=== PATIENT | female | born 1965 | race Caucasian/White ===

== ENCOUNTER 2017-11-16 06:35 | Emergency (ER) | payer OTHER ==
--- NOTE | 2017-11-16 07:03 | EDPHY ---
HPI/HX/ROS/PE/MDM Narrative: CHIEF COMPLAINT: Blood in stool HISTORY OF PRESENT ILLNESS: This patient is a pleasant 52 y/o female complaining of blood in her stool. 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 One 14mm and one 3mm polyp were removed during the procedure. Since that time, she has had bright red blood associated with every bowel movement. She notices blood dripping into the toilet bowl for several minutes following her bowel movements. She does not notice any bleeding at other times or presence of blood in her underclothes. She denies hematuria. The patient complains of left-sided cramping abdominal pain and some back pain. She took a laxative last night and her last oral intake was around 3pm yesterday. She spoke with Dr. Cruz's office regarding possible cauterization and staff recommended she present to the emergency department for further evaluation and consult with the on-call GI specialist. The patient notes she has been told during prior procedures that she "does not clot well". She is not anticoagulated and does not take daily aspirin. She endorses family history of Crohn's disease. No fever, chills, chest pain, shortness of breath, palpitations, vomiting, diarrhea, urinary complaints, headache, lightheadedness, dizziness. REVIEW OF SYSTEMS: Aside from elements discussed in the HPI, a comprehensive 10-point review of systems was reviewed and is negative. PAST MEDICAL HISTORY: Hypothyroidism, Raynaud's, "small esophagus" SOCIAL HISTORY: . at bedside. Lives in [place]. GI specialist: Dr. Cruz. VITAL SIGNS: Reviewed by me GENERAL: Well-developed, well-nourished, resting comfortably in no respiratory distress. HEENT: Atraumatic. Eyes: No icterus, no injection. Mouth: moist mucous membranes. No erythema or lesions. Neck: supple with no adenopathy. LUNGS: Clear to auscultation bilaterally, no wheezes, rhonchi or rales. CARDIAC: Regular rate and rhythm, mildly rapid around 90bpm. No rubs, murmurs or gallops. ABDOMEN: Voluntary guarding and tenderness in LLQ. Soft, nondistended, bowel sounds normal. BACK: No CVA tenderness. EXTREMITIES: No trauma. No edema. Range of motion is normal throughout. NEURO: Alert and oriented, grossly nonfocal. SKIN: Warm and dry, no rash. PSYCHIATRIC: Normal mentation, no agitation. Portions of this note were transcribed by a director [employer]. I personally performed a history, physical exam, medical decision making, and confirmed accuracy of information the transcribed note. ED Course: 52 y/o female presents with ten day history of bleeding associated with bowel movements following a colonoscopy and polypectomy on 11/07/17. Exam reveals tenderness and voluntary guarding to the lower left quadrant. Plan to consult with Dr. Pollack, ready mix truck driver bell person. IV established. Plan for labs including CBC, chemistries. Plan to administer 1L IV NS. Labs largely unremarkable. 08:25 Dr. Pollack at bedside. 08:45 Internal bleeding hemorrhoids noted on Dr. Pollack's exam. Plan to discharge home in good condition with prescription for Anusol HC suppositories. She will follow up newt week with Dr. Cruz, her ready mix truck driver. Follow up and return precautions discussed. She is comfortable with this plan. MDM: Differential diagnoses for the patient's symptom complex was considered including but not limited to upper GI hemorrhage, lower GI hemorrhage, bleeding hemorrhoids, anal fissures, bleeding from polyp removal site, AVM. - Data Points Laboratory Results: Laboratory Results 11/16/17 07:02 11/16/17 07:02 Medications Given: Discontinued Medications Sodium Chloride (Ns) 1,000 mls @ 0 mls/hr IV ONCE ONE; Wide Open PRN Reason: Protocol Stop: 11/16/17 07:23 Last Admin: 11/16/17 08:30 Dose: Not Given General Time Seen by Provider: 11/16/17 07:02 Initial Vital Signs: Initial Vital Signs Temperature (C) 36.8 C 11/16/17 06:45 Heart Rate 79 11/16/17 06:45 Respiratory Rate 16 11/16/17 06:45 Blood Pressure 119/82 H 11/16/17 06:45 O2 Sat (%) 97 11/16/17 06:45 O2 Delivery Mode Room Air Allergies/Adverse Reactions: No Known Allergies Allergy (Unverified 10/26/09 14:27) Home Medications: Medication Instructions Recorded Hydrocortisone Acetate [Anucort-Hc] 25 mg RC DAILY PRN #15 supp.rect 11/16/17 Levothyroxine 11/16/17 Departure - Departure Disposition: Home, Routine, Self-Care Clinical Impression: Rectal bleeding, Hemorrhoids Condition: Good Instructions: Hemorrhoids (ED), Rectal Bleeding (ED) Additional Instructions: Use Anusol HC suppositories as directed. Follow up with Dr. Cruz next week for re-evaluation. Return to the emergency department for increased or persistent bleeding, increased or changing pain, lightheadedness, fever, chest pain, shortness of breath, or other worsening of condition or further concerns. You may wish to follow up with your primary care physician for a bleeding test as we discussed. Referrals: Miguel Ángel Cruz MD [Primary Care Provider] - As per Instructions Prescriptions: Hydrocortisone Acetate [Anucort-Hc] 25 mg RC DAILY PRN #15 supp.rect PRN Reason: hemorrhoid Report Scribed for: Melissa Valentine Report Scribed by: Lisa Cast Date of Report: 11/16/17 Time of Report: 07:07
[2017-11-16] MEDS ORDERED: NS 1,000 ML IV ONE (07:22)
[2017-11-16 07:24] LABS: PLATELET COUNT 229 10^3/uL (150-400)
[2017-11-16 08:57] VITALS: BP 115/85
--- NOTE | 2017-11-16 10:08 | GCON ---
[f rep st] CONSULTATION REFERRING PHYSICIAN: Melissa Valentine MD CHIEF COMPLAINT: Blood in stool. HISTORY OF PRESENT ILLNESS: This very pleasant, 52-year-old woman was referred to me in consultation by Dr. Valentine in the emergency department, for rectal bleeding. Patient is healthy, has a history of hypothyroidism and probable eosinophilic esophagitis, per history. She had undergone colonoscopy about 9 days ago. She had multiple colon polyps with a right-sided colon polyp that was cold snare excised. She had no complications from colonoscopy. She has been feeling well, has been having normal bowel movements. However, she has noted ever since her procedure. She has had episodes of bright red blood per rectum with bowel movements, a small amount of blood with blood dripping into the toilet water. She has no associated lightheadedness or dizziness. No significant abdominal pain or discomfort. She does have a prior history of hemorrhoids, but has never had hemorrhoidal bleeding in the past. She is not on any aspirin or aspirin products, or anticoagulation. The patient presented to the emergency department. She has been hemodynamically stable, with a normal hematocrit. Patient called to the office yesterday with the above complaints, told to go to the emergency room. She stayed at home, felt well. Did take a laxative, had no further bleeding last evening. Presented to the emergency department after breakfast. I am asked to see the patient for further evaluation. PAST MEDICAL HISTORY: Marked for hypothyroidism, Raynaud phenomenon, and question of eosinophilic esophagitis. SOCIAL HISTORY: She is . Lives in [place]. Nonsmoker. Occasional drinking. FAMILY HISTORY: Negative as it pertains to chief complaint. MEDICATIONS: Prior to admission, levothyroxine. ALLERGIES: No known drug allergies. REVIEW OF SYSTEMS: Negative 10 systems other than mentioned in HPI. PHYSICAL EXAM: VITAL SIGNS: 115/85, heart rate of 72, respiratory rate 16, 98% sat, 36.9. GENERAL: A very pleasant woman in no acute distress. HEENT: Normocephalic, atraumatic. EOMI. NECK: Supple. No cervical adenopathy. No thyromegaly. Mucous membranes moist. LUNGS: Clear. CARDIAC: Normal S1, S2, without murmur. ABDOMEN: Soft, benign. No hepatosplenomegaly. Nontender. EXTREMITIES: Unremarkable, without clubbing, cyanosis, edema. SKIN: Warm, dry , intact. NEURO: Nonfocal. PSYCHIATRIC: Alert and oriented x3, with normal affect. ANOSCOPY: Small external skin tags. No masses felt in the rectal vault. Nontender. Anoscopy revealed no blood in the rectal vault, with two moderate- sized/grade 2 internal hemorrhoids. LABORATORY DATA: Hemoglobin 13.4, hematocrit 40.2. Serum chemistries: Serum sodium 141, potassium 4.7, chloride 105, CO2 25, BUN of 13, creatinine 0.8. IMPRESSION: A 52-year-old woman with a prior history of polypectomy about 8 or 9 days ago. The patient has been having intermittent rectal bleeding since her colonoscopy. Clinical presentation is more consistent with hemorrhoidal bleeding. The patient has been hemodynamically stable, without drop in hematocrit. Anoscopy revealed internal hemorrhoids, without blood in the rectal vault. RECOMMENDATIONS: 1. Patient can be discharged home with her . 2. Patient to call with any continued symptoms of bleeding or the onset of lightheadedness, dizziness. 3. Would recommend Anusol HC suppositories 1 per rectum twice daily for 10 days. 4. Patient to follow up with our office for continued bleedings for consideration of treatment of hemorrhoids with IRC or hemorrhoidal banding. Thank you for letting me participate in the care of this patient. /[id number]/MODL MTDD
== END 2017-11-16 08:56 | disposition home or self-care (01) ==
DX: K64.9 Unspecified hemorrhoids (principal)

== ENCOUNTER → 2018-05-18 | Outpatient (CLI) | payer OTHER | LOC: FIMAGING 14:24 | PROVIDERS: ATTEND Obstetrics & Gynecology | DX: R10.2 Pelvic and perineal pain (principal) ==

== ENCOUNTER → 2018-08-13 | Outpatient (CLI) | payer OTHER | LOC: FIMAGING 09:31 | PROVIDERS: ATTEND Family Medicine | DX: Z12.31 Encounter for screening mammogram for malignant neoplasm of breast (principal) ==